=== PATIENT | female | born 1975 | race Caucasian/White ===

== ENCOUNTER 2017-02-07 08:06 | Outpatient (CLI) | payer OTHER ==
[~2017-02-07 08:06] MED LIST: ACETAMINOPHEN 325 MG TABLET PO PRN; DIPHENHYDRAMINE HCL 25 MG CAPSULE PO PRN; IRON DEXTRAN COMPLEX 25 MG in SYRINGE, DISPOSABLE, 1 EACH IV PRN; IRON DEXTRAN COMPLEX 975 MG in NORMAL SALINE 1000 ML 1,000 ML IV PRN
[2017-02-07] MEDS: NORMAL SALINE 250 ML IV PRN ×2 (09:03→09:31)
[2017-02-07 09:24] VITALS: BP 109/55
== END 2017-02-07 14:19 | disposition home or self-care (01) ==
LOC: II 08:06 → 5TH 08:57 → II 14:19
PROVIDERS: ATTEND Internal Medicine Hematology & Oncology
PROC: 3E033GC Introduction of Other Therapeutic Substance into Peripheral Vein, Percutaneous Approach (ICD-10-PCS; principal; 2017-02-07)
DX: D50.8 Other iron deficiency anemias (principal)
CPT/HCPCS: 96365; 96366; 96374; J1750; J7030; J3490; 96376

== ENCOUNTER 2017-05-05 08:05 | Outpatient (CLI) | payer OTHER ==
[~2017-05-05 08:05] MED LIST changes: +IRON DEXTRAN COMPLEX 1,000 MG in NORMAL SALINE 1000 ML 1,000 ML IV PRN; -IRON DEXTRAN COMPLEX 25 MG in SYRINGE, DISPOSABLE, 1 EACH IV PRN; -IRON DEXTRAN COMPLEX 975 MG in NORMAL SALINE 1000 ML 1,000 ML IV PRN; +NORMAL SALINE 250 ML IV PRN
[2017-05-05 09:24] VITALS: BP 104/49
== END 2017-05-05 13:16 | disposition home or self-care (01) ==
LOC: II 08:05 → 5TH 08:15 → II 13:16
PROVIDERS: ATTEND Internal Medicine Hematology & Oncology
PROC: 3E033GC Introduction of Other Therapeutic Substance into Peripheral Vein, Percutaneous Approach (ICD-10-PCS; principal; 2017-05-05)
DX: D50.8 Other iron deficiency anemias (principal)
CPT/HCPCS: 96367; J1750; J7030; 96365; 96366